=== PATIENT | male | born 1955 | race Caucasian/White ===

== ENCOUNTER 2018-03-11 15:33 | Inpatient (IN) | payer OTHER ==
[~2018-03-11] VITALS: Ht 170.2 cm; Wt 100.4 kg
[~2018-03-11 15:33] MED LIST: NO HOME MEDS
[2018-03-11 15:52] LABS: BASOPHIL (%) 0.8 % (0-1); BASOPHIL COUNT 0.1 K/uL (0-0.1); EOSINOPHIL (%) 2.6 % (0-5); EOSINOPHIL COUNT 0.2 K/uL (0-0.3); HEMOGLOBIN 14.5 G/DL (12.5-16.6); IMMATURE GRANULOCYTE (%) 0.3 % (0.0-0.7); LYMPHOCYTE (%) 25.2 % (15-42); LYMPHOCYTE COUNT 1.9 K/uL (1.0-2.8); MCH 31.2 PG (29.0-34.0); MCHC 34.5 G/DL (30.0-36.0); MCV 90.3 FL (86-99); MONOCYTE (%) 5.9 % (3-12); MONOCYTE COUNT 0.5 K/uL (0-0.8); NEUTROPHIL (%) 65.2 % (45-76); PLATELET COUNT 196 K/uL (156-360); RBC DIS.WIDTH-CV 11.8 % (11.8-14.6); RBC DIS.WIDTH-SD 38.8 % (39-53); RED BLOOD COUNT 4.65 M/uL (4.00-5.50); WHITE BLOOD COUNT 7.7 K/uL (4.1-10.2)
[2018-03-11 16:01] LABS: ALBUMIN 3.8 g/dL (3.2-4.8)
[2018-03-11 16:02] LABS: CHLORIDE 106 mEq/L (99-109); POTASSIUM 3.6 mEq/L (3.7-5.4); SODIUM 140 mEq/L (136-147)
[2018-03-11 16:04] LABS: GLUCOSE 124 mg/dL (70-99)
[2018-03-11 16:06] LABS: TOTAL BILIRUBIN 0.5 mg/dL (0.0-1.0)
[2018-03-11 16:07] LABS: ALKALINE PHOSPHATASE 47 IU/L (3-129)
[2018-03-11 16:08] LABS: GFR ESTIMATE (CALCULATED) > 59 mL/min/ (58.99-99999)
[2018-03-11 16:09] LABS: AST (GOT) 16 IU/L (2-34); UREA NITROGEN (BUN) 21 mg/dL (9-23)
[2018-03-11 16:11] LABS: ALT (GPT) 21 IU/L (3-49)
[2018-03-11 16:39] LABS: TROP-I INTERPRETATION NEGATIVE; TROPONIN-I 0.01 ng/mL (0.0-0.30)
[2018-03-11 16:55] LABS: APPEARANCE CLEAR ((CLEAR)); BILIRUBIN NEGATIVE; BLOOD NEGATIVE; COLOR YELLOW ((YELLOW)); GLUCOSE (STRIP) NEGATIVE; KETONES NEGATIVE; LEUKOCYTES NEGATIVE; NITRITE NEGATIVE; PROTEIN (STRIP) NEGATIVE; SPECIFIC GRAVITY 1.019 (1.000-1.030); UCUL ADDED? NO; UROBILINOGEN 0.2 MG/DL (0.2-1.0)
[2018-03-11 17:02] LABS: HDL CHOLESTEROL 37 MG/DL (Desirable>=40); LDL CHOLESTEROL 127 mg/dL (Desirable<100); NON-HDL CHOLESTEROL 167 mg/dL (Desirable<160); TOTAL CHOLESTEROL 204 mg/dL (Desirable<200); TRIGLYCERIDES 201 MG/DL (Normal: <150)
[2018-03-11] MEDS ORDERED: METFORMIN HCL500 MG PO (17:41)
[2018-03-11] MEDS ORDERED: MORPHINE SULFAT30 M2 PO (17:41)
[2018-03-11] MEDS ORDERED: HYDROCODON-ACE1 EAC8 PO (17:42)
[2018-03-11] MEDS ORDERED: LISINOPRIL-HCT1 EAC3 PO (17:42)
[2018-03-11] MEDS ORDERED: ZOLPIDEM TARTRA10 MG PO (17:43)
[2018-03-11] MEDS ORDERED: TIZANIDINE HCL4 MG PO (17:43)
[2018-03-11] MEDS ORDERED: IMDUR60 MG PO (17:43)
[2018-03-11] MEDS ORDERED: TRAZODONE HCL50 MG PO (17:43)
[2018-03-11] MEDS ORDERED: CLOPIDOGREL75 MG PO (17:44)
[2018-03-11] MEDS ORDERED: VENTOLIN HFA18 GM IH (17:44)
[2018-03-11] MEDS ORDERED: MIRTAZAPINE45 MG PO (17:44)
[2018-03-11] MEDS ORDERED: TAMSULOSIN HCL0.4 MG PO (17:44)
[2018-03-11] MEDS ORDERED: METOPROLOL SUCC50 MG PO (17:45)
[2018-03-11] MEDS ORDERED: OMEPRAZOLE40 M1 PO (17:45)
[2018-03-11] MEDS ORDERED: ADVAIR 250/501 DISK IH (17:45)
[2018-03-11] MEDS ORDERED: VENLAFAXINE HCL75 M3 PO (17:46)
[2018-03-11 21:54] VITALS: BP 178/86
[2018-03-12] VITALS (8 sets, daily range): BP systolic 121–182; BP diastolic 65–91
[2018-03-12 10:00] LABS: HEMOGLOBIN A1c (GLYCOHEMOGLOB) 6.5 % (Below 5.7)
[2018-03-13 03:50] VITALS: BP 174/79
[2018-03-13 05:29] LABS: BASOPHIL (%) 0.7 % (0-1); BASOPHIL COUNT 0.1 K/uL (0-0.1); EOSINOPHIL (%) 3.4 % (0-5); EOSINOPHIL COUNT 0.2 K/uL (0-0.3); HEMATOCRIT 40.9 % (38.0-50.0); HEMOGLOBIN 13.9 G/DL (12.5-16.6); IMMATURE GRANULOCYTE (%) 0.4 % (0.0-0.7); LYMPHOCYTE (%) 27.8 % (15-42); LYMPHOCYTE COUNT 1.9 K/uL (1.0-2.8); MCH 31.3 PG (29.0-34.0); MCV 92.1 FL (86-99); MONOCYTE (%) 7.9 % (3-12); MONOCYTE COUNT 0.5 K/uL (0-0.8); NEUTROPHIL (%) 59.8 % (45-76); PLATELET COUNT 195 K/uL (156-360); RBC DIS.WIDTH-CV 11.8 % (11.8-14.6); RBC DIS.WIDTH-SD 39.8 % (39-53); RED BLOOD COUNT 4.44 M/uL (4.00-5.50); WHITE BLOOD COUNT 6.7 K/uL (4.1-10.2)
[2018-03-13 05:47] LABS: CHLORIDE 104 MEQ/L (99-109); GFR ESTIMATE (CALCULATED) > 59 mL/min/ (58.99-99999); GLUCOSE 130 mg/dL (70-99); POTASSIUM 3.5 MEQ/L (3.7-5.4); SODIUM 140 MEQ/L (136-147); UREA NITROGEN (BUN) 18 mg/dL (9-23)
[2018-03-13 07:51] VITALS: BP 210/95
[2018-03-13 09:21] VITALS: BP 166/95
[2018-03-13] MEDS ORDERED: ATORVASTATIN CA80 MG PO (11:28)
[2018-03-13] MEDS ORDERED: ASPIR 8181 M1 PO (11:29)
== END 2018-03-13 13:17 | disposition home or self-care (01) | DRG 66 ==
LOC: EME 15:33 → EDOF 19:52 → 4SOUTH 19:52 → EDOF 19:52 → ENRESERV 19:54 → 4SOUTH 21:30
PROVIDERS: Emergency Medicine; Hospitalist; Internal Medicine
DX: I63.511 Cerebral infarction due to unspecified occlusion or stenosis of right middle cerebral artery (principal); E11.40 Type 2 diabetes mellitus with diabetic neuropathy, unspecified; E87.6 Hypokalemia; I10 Essential (primary) hypertension; E78.5 Hyperlipidemia, unspecified; I25.10 Atherosclerotic heart disease of native coronary artery without angina pectoris; I35.0 Nonrheumatic aortic (valve) stenosis; K21.9 Gastro-esophageal reflux disease without esophagitis; N40.0 Benign prostatic hyperplasia without lower urinary tract symptoms; J45.909 Unspecified asthma, uncomplicated; F32.9 Major depressive disorder, single episode, unspecified; E66.9 Obesity, unspecified; R29.700 NIHSS score 0; Z68.34 Body mass index [BMI] 34.0-34.9, adult; I25.2 Old myocardial infarction; Z79.84 Long term (current) use of oral hypoglycemic drugs; Z79.02 Long term (current) use of antithrombotics/antiplatelets; Z79.4 Long term (current) use of insulin; Z95.5 Presence of coronary angioplasty implant and graft
CPT/HCPCS: 70450; 70496; 70498; 70551; 80048; 80053; 80061; 81003; 82948; 83036; 84484; 85025; 93005; 93306; 94640; 94799; 99281; 99285; G0378; J1200; J1885; J2405; J2765; J7040